=== PATIENT | female | born 1995 | race Caucasian/White ===

== ENCOUNTER 2017-06-18 10:22 | Emergency (ER) | payer BC ==
[2017-06-18 10:33] VITALS: TEMP 98.9; BMI 29.2
--- NOTE | 2017-06-18 10:55 | PDOC ---
History of Present Illness <Rick Baez - Last Filed: 06/18/17 14:45> - General History Source: Patient Exam Limitations: No Limitations - History of Present Illness Initial Comments: 06/18/17 15:06 32y.[id number], with history of asthma and anxiety, who presents to the emergency room complaining of 1 day of left sided neck pain that began after waking up this morning. She states that she woke up with a twisted neck. The patient believes that this is a side effect of her anxiety medications. Denies chest pain, SOB. Denies headache, lightheadedness. Denies any neck trauma. Denies any rashes. <Flower Duncan - Last Filed: 06/18/17 15:11> - General Chief Complaint: Pain Stated Complaint: NECK AND L SHOULDER PAIN Time Seen by Provider: 06/18/17 10:27 Past History - Past Medical History Anemia: Yes Asthma: Yes COPD: No Psychiatric Problems: Yes (ANXIETY) - Suicide/Smoking/Psychosocial Hx Smoking History: Never smoked Hx Alcohol Use: No Drug/Substance Use Hx: No Substance Use Type: None <Rick Baez - Last Filed: 06/18/17 14:45> <Flower Duncan - Last Filed: 06/18/17 15:11> - Past Medical History Allergies/Adverse Reactions: Allergies Allergy/AdvReac Type Severity Reaction Status Date / Time No Known Allergies Allergy Verified 06/18/17 10:31 Home Medications: Ambulatory Orders Albuterol Sulfate Liquid [Ventolin *Liquid*] 2 mg PO PRN PRN 08/15/14 Escitalopram Oxalate [Lexapro -] 20 mg PO DAILY 06/18/17 Mirtazapine [Remeron -] 30 mg PO ASDIR 06/18/17 Review of Systems - Review of Systems Able to Perform ROS?: Yes Comments:: 06/18/17 15:06 CONSTITUTIONAL: Absent: fever, no chills, no fatigue EYES: Absent: visual changes ENT: Absent: ear pain, no sore throat CARDIOVASCULAR: Absent: chest pain, no palpitations RESPIRATORY: Absent: cough, no SOB GI: Absent: abdominal pain, no nausea, no vomiting, no constipation, no diarrhea GENITOURINARY: Absent: dysuria, no frequency, no hematuria MUSCULOSKELETAL: +left sided neck pain Absent: back pain SKIN: Absent: rash <Flower Duncan - Last Filed: 06/18/17 15:11> *Physical Exam - Vital Signs Last Vital Signs Temp Pulse Resp BP Pulse Ox 98.9 F 88 18 111/67 100 06/18/17 10:22 06/18/17 10:22 06/18/17 10:22 06/18/17 10:22 06/18/17 10:22 <Moucha,Remus S - Last Filed: 06/18/17 14:45> - Vital Signs Last Vital Signs Temp Pulse Resp BP Pulse Ox 98.9 F 71 18 108/56 100 06/18/17 10:22 06/18/17 14:51 06/18/17 14:51 06/18/17 14:51 06/18/17 14:51 - Physical Exam Comments: 06/18/17 15:06 GENERAL: Well-appearing, well-nourished. Quite anxious, but smiling. HEENT: Normocephalic, atraumatic. PERRL, EOM intact. CARDIOVASCULAR: Normal S1, S2. Regular rate and rhythm. PULMONARY: Clear to auscultation bilaterally. ABDOMEN: Soft, non-distended, non-tender. EXTREMITIES: Normal ROM in all four extremities. No gross deformities. BACK: Mild to moderate C-spine tenderness, however when checking for shoulder strength it seemed that the neck was able to straighten out SKIN: Warm, dry. No rash NEUROLOGICAL: No focal neurological deficits. <Flower Duncan - Last Filed: 06/18/17 15:11> ED Treatment Course - ADDITIONAL ORDERS Additional order review: Laboratory Results 06/18/17 10:30 Urine HCG, Qual Negative <Mosholaa,Remus S - Last Filed: 06/18/17 14:45> - ADDITIONAL ORDERS Additional order review: Laboratory Results 06/18/17 06/18/17 10:53 10:30 Urine Color Yellow Urine Appearance Clear Urine pH 7.0 Ur Specific [place] 1.020 Urine Protein Trace Urine Glucose (UA) Negative Urine Ketones Negative Urine Blood Negative Urine Nitrite Negative Urine Bilirubin Negative Urine Urobilinogen 0.2 Ur Leukocyte Esterase 2+ H Urine RBC 0-3 Urine WBC 5-10 Ur Epithelial Cells Few Urine Bacteria Many Urine HCG, Qual Negative - Medications Given in the ED: ED Medications Discontinued Medications Generic Name Dose Route Start Last Admin Trade Name Lelia PRN Reason Stop Dose Admin Diphenhydramine HCl 25 mg 06/18/17 11:10 06/18/17 11:22 Benadryl Injection - IVPUSH 06/18/17 11:11 25 mg ONCE ONE Administration Sodium Chloride 1,000 mls @ 1,000 mls/hr 06/18/17 13:49 06/18/17 11:50 Normal Saline - IV 06/18/17 14:48 1,000 mls/hr .Q1H ONE Administration Ondansetron HCl 4 mg 06/18/17 13:49 06/18/17 13:50 Zofran Injection IVPB 06/18/17 13:50 4 mg ONCE ONE Administration <Flower Duncan - Last Filed: 06/18/17 15:11> Medical Decision Making - Medical Decision Making 06/18/17 12:00 Will give IV fluids and benadryl IV Will watch every hour for improvement 06/18/17 13:00 The patient is sleeping comfortably 06/18/17 14:00 Patient went for Xrays but was complaining of nausea 06/18/17 15:06 C.Spine Xray: Reviewed and negative by Dr. Baez After 4 hours the neck is straight and fine. Gave zofran for nausea Diagnosis: Torticolis <Flower Duncan - Last Filed: 06/18/17 15:11> *DC/Admit/Observation/Transfer - Discharge Dispostion Admit: No <Rick Baez - Last Filed: 06/18/17 14:45> - Attestations Scribe Attestion: 06/18/17 15:11 Documentation prepared by LAURA Ram, acting as medical coding auditor for Rick Baez MD. <Flower Duncan - Last Filed: 06/18/17 15:11> Diagnosis at time of Disposition: Torticollis, acute - Discharge Dispostion Disposition: HOME Condition at time of disposition: Improved - Patient Instructions Printed Discharge Instructions: DI for Torticollis Additional Instructions: Avoid strenous motion of the neck. Discus with your physician if apropriate to take small dose of Benadryl if similar occurences
[2017-06-18 11:35] LABS: URINE APPEARANCE Clear; URINE BILIRUBIN Negative (NEGATIVE); URINE BLOOD Negative (NEGATIVE); URINE COLOR YELLOW; URINE GLUCOSE (UA) Negative (NEGATIVE); URINE KETONE Negative (NEGATIVE); URINE LEUK ESTERASE 2+ (NEGATIVE); URINE NITRITE Negative (NEGATIVE); URINE PROTEIN Trace (NEGATIVE); URINE UROBILINOGEN 0.2 (0.2-1.0)
[2017-06-18 12:46] LABS: URINE RBC 0-3 /hpf (0-3)
[2017-06-18 12:47] LABS: URINE BACTERIA MANY /hpf (NEGATIVE)
[2017-06-18] MEDS ORDERED: ONDANSETRON 4 MG/2 ML VIAL ONE (13:38)
[2017-06-18] MEDS ORDERED: ONDANSETRON 4 MG/2 ML VIAL IVPB ONE (13:49)
[2017-06-18] MEDS ORDERED: SODIUM CHLORIDE 1,000 ML IV ONE (13:49)
[2017-06-18 14:52] VITALS: BP 108/56; PULSE 71
== END 2017-06-18 14:52 | disposition home or self-care (01) ==
LOC: FER 10:22
PROC: 3E0337Z Introduction of Electrolytic and Water Balance Substance into Peripheral Vein, Percutaneous Approach (ICD-10-PCS; principal; 2017-06-18)
PROC: 3E033GC Introduction of Other Therapeutic Substance into Peripheral Vein, Percutaneous Approach (ICD-10-PCS; 2017-06-18)
DX: M43.6 Torticollis (principal); F41.9 Anxiety disorder, unspecified; D64.9 Anemia, unspecified; J45.909 Unspecified asthma, uncomplicated
CPT/HCPCS: 72050-TC; 81003; 81015; 84703; 99282-25